=== PATIENT | male | born 1950 | race Caucasian/White ===

== ENCOUNTER 2017-04-28 16:27 | Emergency (ER) | payer OTHER ==
[~2017-04-28] VITALS: Ht 167.6 cm; Wt 90.1 kg
[2017-04-28 17:22] LABS: HEMATOCRIT 38.7 % (38.0-50.0); MCH 30.6 PG (29.0-34.0); MCHC 37.2 G/DL (30.0-36.0); MCV 82.3 FL (86-99); PLATELET COUNT 185 K/uL (156-360); RBC DIS.WIDTH-SD 35.9 % (39-53); WHITE BLOOD COUNT 5.9 K/uL (4.1-10.2)
[2017-04-28 17:32] LABS: CHLORIDE 104 mEq/L (99-109); POTASSIUM 4.4 mEq/L (3.7-5.4); SODIUM 138 mEq/L (136-147)
[2017-04-28 17:34] LABS: GLUCOSE 205 mg/dL (70-99)
[2017-04-28 17:36] LABS: ANION GAP 10 MEQ/L (2-14)
[2017-04-28 17:38] LABS: GFR ESTIMATE (CALCULATED) > 59 mL/min/
[2017-04-28 17:39] LABS: UREA NITROGEN (BUN) 19 mg/dL (9-23)
[2017-04-28 17:43] LABS: TROP-I INTERPRETATION NEGATIVE; TROPONIN-I < 0.01 ng/mL (0.0-0.30)
[2017-04-28 18:45] LABS: TROP-I INTERPRETATION NEGATIVE; TROPONIN-I < 0.01 ng/mL (0.0-0.30)
[2017-04-28 21:03] VITALS: BP 168/109
== END 2017-04-28 21:15 | disposition short-term general hospital (02) ==
LOC: EME 16:27
PROVIDERS: Emergency Medicine
DX: I20.9 Angina pectoris, unspecified (principal); Z87.891 Personal history of nicotine dependence
CPT/HCPCS: 71020; 80048; 84484; 85027; 93005; 99281; 99285